=== PATIENT | male | born 1965 | race Caucasian/White ===

== ENCOUNTER 2018-07-06 00:15 | Emergency (ER) | payer OTHER ==
[~2018-07-06] VITALS: Ht 188 cm; Wt 95.3 kg
[2018-07-06 00:30] VITALS: BP 152/99
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
[2018-07-06] MEDS ORDERED: PERCOCET 5-3251 EACH PO ×2 (00:56→01:00)
[2018-07-06] MEDS ORDERED: IBUPROFEN600 M1 PO (00:56)
[2018-07-06] MEDS ORDERED: BACITRACIN28.4 GM TOP (01:02)
== END 2018-07-06 01:29 ==
LOC: ERH 00:15
DX: T24.222A Burn of second degree of left knee, initial encounter (principal); T25.012A Burn of unspecified degree of left ankle, initial encounter; T24.012A Burn of unspecified degree of left thigh, initial encounter; X06.2XXA Exposure to ignition of other clothing and apparel, initial encounter
CPT/HCPCS: 90471; 90714